=== PATIENT | male | born 1985 | race Caucasian/White ===

== ENCOUNTER 2018-05-15 18:58 | Emergency (ER) | payer BC ==
[2018-05-15 20:12] VITALS: BP 125/74
--- NOTE | 2018-05-15 20:39 | ED ---
Respiratory - HPI Summary HPI Summary: 32 yo WM c/o persistent non-productive cough x 4 weeks, started out as URI but cough remained, seems like it is in the chest, took OTC anti-tussive for a few days but stopped because it failed to produce improvement - History of Current Complaint Chief Complaint: UCRespiratory Stated Complaint: COUGH Time Seen by Provider: 05/15/18 20:09 Hx Obtained From: Patient Onset/Duration: Lasting Weeks Initial Severity: Moderate Current Severity: Moderate Pain Intensity: 0 Sputum Amount: None - Allergy/Home Medications Allergies/Adverse Reactions: Allergies Allergy/AdvReac Type Severity Reaction Status Date / Time No Known Allergies Allergy Verified 05/15/18 20:06 PMH/Surg Hx/FS Hx/Imm Hx Previously Healthy: Yes - Surgical History Surgery Procedure, Year, and Place: lasix eye surgery (bi-lat). appy 04/2016 Infectious Disease History: Yes Infectious Disease History: Reports: Hx Clostridium Difficile - 04/2016 Denies: Traveled Outside the [place] in Last 30 Days - Family History Known Family History: Positive: None - Social History Alcohol Use: Occasionally Substance Use Type: Reports: None Smoking Status (MU): Never Smoked Tobacco Review of Systems Constitutional: Negative Eyes: Negative ENT: Negative Cardiovascular: Negative Respiratory: Other Positive: Cough, Other - PLEURITIC CP Gastrointestinal: Negative Genitourinary: Negative Musculoskeletal: Negative Skin: Negative Neurological: Negative Psychological: Normal All Other Systems Reviewed And Are Negative: Yes Physical Exam - Summary Physical Exam Summary: Vital Signs Reviewed: Yes Appearance: Positive: Well-Appearing Skin: Positive: Warm Head/Face: Positive: Normal Head/Face Inspection Eyes: Positive: Normal, EOMI, ROBERTO ENT: Positive: Normal ENT inspection Neck: Positive: Supple Respiratory/Lung Sounds: Positive: Clear to Auscultation, B/L rhonchi with cough Cardiovascular: Positive: Normal, RRR, S1, S2 Abdomen Description: Positive: Nontender, Soft Musculoskeletal: Positive: Normal Neurological: Positive: CN Intact II-XII Psychiatric: Positive: Normal Vital Signs On Initial Exam: Initial Vitals Temp Pulse Resp BP Pulse Ox 36.6 C 75 14 125/74 98 05/15/18 20:05 05/15/18 20:05 05/15/18 20:05 05/15/18 20:05 05/15/18 20:05 Diagnostics - Vital Signs Vital Signs Temp Pulse Resp BP Pulse Ox 05/15/18 20:05 36.6 C 75 14 125/74 98 - Laboratory Lab Statement: Any lab studies that have been ordered have been reviewed, and results considered in the medical decision making process. Disposition - Course Assessment/Plan: persistent cough with pleuritic CP- CXR with right sided perihilar patchiness>left, will tx with azithromycin to tx and prevent bronchoPNA. 1st dose given in UC as pharmacy closed - Diagnoses Provider Diagnoses: Persistent cough for 3 weeks or longer, Bronchitis Discharge - Sign-Out/Discharge Documenting (check all that apply): Patient Departure All imaging exams completed and their final reports reviewed: Yes - Discharge Plan Condition: Stable Disposition: HOME Prescriptions: Azithromyxin CHELLE (NF) [Z-Chelle (Zithromax) 250 mg tabs #6] 2 tab PO .TODAY, THEN 1 DAILY #6 tab Guaifenesin/Dextromethorphan [Mucinex Dm ER 600-30 mg Tablet] 1 each PO BID PRN 7 Days #14 tab.er.12h PRN Reason: Cough Patient Education Materials: Acute Bronchitis (ED) Referrals: Laurent Philippe DO [Primary Care Provider] - Additional Instructions: follow up with PCP or go to ER return to clinic if sx worsen - Billing Disposition and Condition Condition: STABLE Disposition: Home
[2018-05-15] MEDS ORDERED: Azithromycin TAB* 250 MG PO ONE (21:31)
--- NOTE | 2018-05-16 08:53 | RAD ---
INDICATION: Cough COMPARISON: None TECHNIQUE: PA and lateral views of the chest were obtained. FINDINGS: The heart and mediastinum are normal in size and contour. At the lower right lung there is faint patchy density asymmetric to the contralateral side. Elsewhere the lungs are grossly clear. There is no evidence of large pleural effusion. Visualized bones are normal for the patient's age. There is no radiographic evidence of free air beneath the diaphragm IMPRESSION: QUESTIONABLE INFILTRATE AT THE RIGHT LOWER LUNG THAT COULD BE PNEUMONIA IN THE CORRECT CLINICAL SETTING. R1F
== END 2018-05-15 21:44 | disposition home or self-care (01) ==
LOC: UCCORT 18:58
DX: R05 Cough (principal); J40 Bronchitis, not specified as acute or chronic
CPT/HCPCS: 71046; 99212; A9270-GY; G0463